=== PATIENT | female | born 1985 | race African-American/Black ===

== ENCOUNTER 2017-10-10 09:16 | Emergency (ER) | payer MEDICAID ==
[~2017-10-10] VITALS: Ht 162.6 cm; Wt 54.4 kg
[~2017-10-10 09:16] MED LIST: ZYPREXA7.5 MG ORAL
[2017-10-10 09:36] VITALS: BP 117/76
--- NOTE | 2017-10-10 09:45 | Emergency Room Report ---
History of Present Illness General Chief Complaint: Behavioral Complaint Source: Patient, EMS (TanvirCj) Present Illness HPI Patient is a 31-year-old female brought in by EMS with [employer] after increased bizarre behavior. Patient was placed on 5150 hold by [employer]. Reportedly she been noted to have a prior history of bipolar disorder and was taking Zyprexa but had been off of her medications. The patient had been noted to have decreased appetite over the past 7 days. The patient was reportedly attempting to flood her bathroom when EMS was called (Cj Ramey) Allergies: Coded Allergies: No Known Allergies (Unverified , 10/11/17) UNABLE TO ASSESS (Unverified , 11/29/15) Patient History Past Medical History: see triage record Reviewed Nursing Documentation: PMH: Agreed; PSxH: Agreed (Cj Ramey) Nursing Documentation-PMH Past Medical History: No History, Except For History Of Psychiatric Problem: Yes (Cj Ramey) Review of Systems All Other Systems: negative except mentioned in HPI (Cj Ramey) Physical Exam Vital Signs Date Time Temp Pulse Resp B/P (MAP) Pulse Ox O2 Delivery O2 Flow Rate FiO2 10/10/17 09:09 98.1 67 16 117/76 100 Room Air 98.1 Sp02 EP Interpretation: reviewed, normal General Appearance: alert/responsive, no apparent distress, GCS 15, non-toxic Head: atraumatic Eyes: PERRL, lids + conjunctiva normal ENT: hearing intact, no angioedema Neck: supple/symm/no masses, no meningismus Respiratory: effort normal, no wheezing, chest symmetrical Cardiovascular: regular rate, rhythm, no edema Cardiovascular #2: 2+ carotid (R), 2+ carotid (L), 2+ dorsalis pedis (R), 2+ dorsalis pedis (L) Gastrointestinal: non-tender, no mass, non-distended, no rebound/guarding, normal bowel sounds Musculoskeletal: gait & station normal, strength & tone normal, normal ROM, non -tender Neurologic: normal inspection, CN II-XII intact, oriented x3, sensory intact, normal speech Psychiatric: normal inspection, anxious Skin: no rash, well hydrated Lymphatic: normal inspection (Cj Ramey) Medical Decision Making Diagnostic Impression: Primary Impression: Bipolar disorder Additional Impression: Substance abuse ER Course Patient presented for psychosis. Differential diagnoses include substance abuse, psychosis, bipolar disorder, depression, malingering. Because of complexity of patient's case laboratory testing and imaging studies were ordered.Laboratory testing was notable for urine drug screen positive for methamphetamine and marijuana. Patient was noted to be medically cleared for psychiatric placement. Labs Test 10/10/17 09:45 10/10/17 10:00 Urine HCG, Qualitative Negative (NEGATIVE) Urine Opiates Screen Negative (NEGATIVE) Urine Barbiturates Screen Negative (NEGATIVE) Phencyclidine (PCP) Screen Negative (NEGATIVE) Urine Amphetamines Screen Positive (NEGATIVE) Urine Benzodiazepines Screen Negative (NEGATIVE) Urine Cocaine Screen Negative (NEGATIVE) Urine Marijuana (THC) Screen Positive (NEGATIVE) White Blood Count 7.7 K/UL (4.8-10.8) Red Blood Count 4.78 M/UL (4.20-5.40) Hemoglobin 11.8 G/DL (12.0-16.0) Hematocrit 38.1 % (37.0-47.0) Mean Corpuscular Volume 80 FL (80-99) Mean Corpuscular Hemoglobin 24.8 PG (27.0-31.0) Mean Corpuscular Hemoglobin Concent 31.1 G/DL (32.0-36.0) Red Cell Distribution Width 12.4 % (11.6-14.8) Platelet Count 332 K/UL (150-450) Mean Platelet Volume 6.3 FL (6.5-10.1) Neutrophils (%) (Auto) 60.3 % (45.0-75.0) Lymphocytes (%) (Auto) 28.1 % (20.0-45.0) Monocytes (%) (Auto) 9.3 % (1.0-10.0) Eosinophils (%) (Auto) 0.8 % (0.0-3.0) Basophils (%) (Auto) 1.6 % (0.0-2.0) Sodium Level 139 MMOL/L (136-145) Potassium Level 3.9 MMOL/L (3.5-5.1) Chloride Level 103 MMOL/L (98-107) Carbon Dioxide Level 28 MMOL/L (21-32) Anion Gap 8 mmol/L (5-15) Blood Urea Nitrogen 13 mg/dL (7-18) Creatinine 0.8 MG/DL (0.55-1.30) Estimat Glomerular Filtration Rate > 60 mL/min (>60) Glucose Level 82 MG/DL (74-106) Calcium Level 9.1 MG/DL (8.5-10.1) Total Bilirubin 0.3 MG/DL (0.2-1.0) Aspartate Amino Transf (AST/SGOT) 25 U/L (15-37) Alanine Aminotransferase (ALT/SGPT) 29 U/L (12-78) Alkaline Phosphatase 75 U/L (46-116) Troponin I 0.000 ng/mL (0.000-0.056) Total Protein 7.5 G/DL (6.4-8.2) Albumin 3.9 G/DL (3.4-5.0) Globulin 3.6 g/dL Albumin/Globulin Ratio 1.1 (1.0-2.7) Salicylates Level 2.6 ug/mL (2.8-20) Acetaminophen Level < 2 MCG/ML (10-30) Serum Alcohol < 3 mg/dL (Cj Ramey) Last Vital Signs Date Time Temp Pulse Resp B/P (MAP) Pulse Ox O2 Delivery O2 Flow Rate FiO2 10/10/17 09:09 98.1 67 16 117/76 100 Room Air 98.1 Status: improved (Cj Ramey) Disposition: HOME, SELF-CARE Condition: Stable Assessment/Plan Assessment/Plan Dr. Lopez came to see patient and ordered antipsychotics as well as initiated patient on outpatient meds with a Zyprexa Rx and will dc. (MICHELLE DRAKE M.D) Cj Ramey Oct 10, 2017 09:45 MICHELLE DRAKE M.D Oct 11, 2017 11:50
[2017-10-10 10:07] LABS: BASOPHILS % (AUTO) 1.6 % (0.0-2.0); EOSINOPHILS % (AUTO) 0.8 % (0.0-3.0); HEMATOCRIT 38.1 % (37.0-47.0); HEMOGLOBIN 11.8 G/DL (12.0-16.0); LYMPHOCYTES % (AUTO) 28.1 % (20.0-45.0); MEAN CORPUSCULAR VOLUME 80 FL (80-99); MONOCYTES % (AUTO) 9.3 % (1.0-10.0); NEUTROPHILS % (AUTO) 60.3 % (45.0-75.0); PLATELET COUNT 332 K/UL (150-450); RED BLOOD COUNT 4.78 M/UL (4.20-5.40); RED CELL DISTRIBUTION WIDTH 12.4 % (11.6-14.8); WHITE BLOOD COUNT 7.7 K/UL (4.8-10.8)
[2017-10-10 10:30] LABS: ANION GAP 8 mmol/L (5-15); BLOOD UREA NITROGEN 13 mg/dL (7-18); CALCIUM 9.1 MG/DL (8.5-10.1); CARBON DIOXIDE 28 MMOL/L (21-32); CHLORIDE 103 MMOL/L (98-107); CREATININE 0.8 MG/DL (0.55-1.30); POTASSIUM 3.9 MMOL/L (3.5-5.1); SODIUM 139 MMOL/L (136-145)
[2017-10-10 10:35] LABS: ALANINE AMINOTRANSFERASE 29 U/L (12-78); ALBUMIN 3.9 G/DL (3.4-5.0); ALBUMIN/GLOBULIN RATIO 1.1 (1.0-2.7); ALKALINE PHOSPHATASE 75 U/L (46-116); ASPARTATE AMINO TRANSFERASE 25 U/L (15-37); BILIRUBIN,TOTAL 0.3 MG/DL (0.2-1.0)
[2017-10-10 13:14] VITALS: BP 113/64
[2017-10-10 17:13] VITALS: BP 100/64
[2017-10-11 00:41] VITALS: BP 114/77
[2017-10-11 05:19] VITALS: BP 116/74
[2017-10-11 08:29] VITALS: BP 113/76
[2017-10-11 12:12] VITALS: BP 121/78
[2017-10-11] MEDS ORDERED: fluPHENAZine Decanoate 25mg Inj IM ONE (12:15)
[2017-10-11 13:21] VITALS: BP 121/78
--- NOTE | 2017-10-11 14:44 | Consultation ---
History of Present Illness General Date patient seen: Oct 11, 2017 Chief Complaint: Behavioral Complaint Present Illness HPI 31-year-old female brought in by EMS with [employer] after increased bizarre behavior on 5150. the pt was seen after she stabilized in ER. the pt was walking in traffic and was hallucinating. the pts system was positive for meth and cannabis. the pt does not endorse si/hi. no psychotic sxs. the pt stated that she ran out of meds. the pt has a psychiatrist. the pt is not at imminent dts/ dto. Allergies: Coded Allergies: No Known Allergies (Unverified , 10/11/17) UNABLE TO ASSESS (Unverified , 11/29/15) Medication History Scheduled Olanzapine (Zyprexa), 7.5 MG ORAL DAILY, (Reported) Patient History Limited by: medical condition History Provided By: Patient, Medical Record, PMD Healthcare decision maker Resuscitation status Advanced Directive on File Past Medical/Surgical History Past Medical/Surgical History: (1) Acute alcoholic intoxication Review of Systems Psychiatric: Reports: prior hx, anxiety, hallucinations Physical Exam General Appearance: no apparent distress, alert Neurologic: oriented x 3, responsive, depressed affect Last 24 Hour Vital Signs Date Time Temp Pulse Resp B/P (MAP) Pulse Ox O2 Delivery O2 Flow Rate FiO2 10/11/17 13:21 98.0 79 17 121/78 99 Room Air 10/11/17 12:12 79 17 121/78 99 Room Air 10/11/17 08:29 86 15 113/76 99 Room Air 10/11/17 05:19 98.2 90 12 116/74 98 Room Air 98.2 10/11/17 00:41 98.2 96 14 114/77 98 Room Air 98.2 10/10/17 17:13 98.7 65 16 100/64 98 Room Air 98.7 Intake and Output 10/10/17 10/11/17 19:00 07:00 Intake Total 0 ml 30 ml Balance 0 ml 30 ml Intake Oral 0 ml 30 ml # Voids 1 Height (Feet): 5 Height (Inches): 4.00 Weight (Pounds): 120 Assessment/Plan Status: stable Assessment/Plan depression schizophrenia prolexin dec 25 IM zyprexa script dc sitter dc 5150 the pt is not at imminent dts/dto Darlene Dawn M.D. Oct 11, 2017 14:44
== END 2017-10-11 13:24 | disposition home or self-care (01) ==
LOC: EDBD 09:16 → EMR 10:36 → MERGE 10:36 → EMR 10-11 13:24
DX: F31.9 Bipolar disorder, unspecified (principal); F19.10 Other psychoactive substance abuse, uncomplicated
CPT/HCPCS: 36415; 80053; 80307; 80329; 81025; 84484; 85025; 96372; 99283; J2680

== ENCOUNTER 2018-10-05 12:01 | Emergency (ER) | payer MEDICAID ==
[~2018-10-05] VITALS: Ht 162.6 cm; Wt 56.7 kg
--- NOTE | 2018-10-05 12:01 | NUR ---
ED Nurse Note: PER EMS, PT. HAS BEEN FEELING WEAK X 3 DAYS, WAS REPORTED THAT SHE HAS NOT BEEN EATING BUT DRINKING BEER
[2018-10-05 12:20] VITALS: BP 138/91
[2018-10-05 12:47] LABS: BASOPHILS % (AUTO) 2.4 % (0.0-2.0); HEMATOCRIT 35.7 % (37.0-47.0); HEMOGLOBIN 10.6 G/DL (12.0-16.0); MEAN CORPUSCULAR VOLUME 81 FL (80-99); MONOCYTES % (AUTO) 11.3 % (1.0-10.0); NEUTROPHILS % (AUTO) 41.4 % (45.0-75.0); PLATELET COUNT 320 K/UL (150-450); RED CELL DISTRIBUTION WIDTH 14.3 % (11.6-14.8); WHITE BLOOD COUNT 4.3 K/UL (4.8-10.8)
[2018-10-05 12:59] LABS: ANION GAP 13 mmol/L (5-15); BLOOD UREA NITROGEN 8 mg/dL (7-18); CALCIUM 8.8 MG/DL (8.5-10.1); CARBON DIOXIDE 24 MMOL/L (21-32); CHLORIDE 100 MMOL/L (98-107); CREATININE 0.7 MG/DL (0.55-1.30); POTASSIUM 4.2 MMOL/L (3.5-5.1); SODIUM 137 MMOL/L (136-145)
[2018-10-05 13:03] LABS: ALANINE AMINOTRANSFERASE 35 U/L (12-78); ALBUMIN 3.8 G/DL (3.4-5.0); ALBUMIN/GLOBULIN RATIO 0.9 (1.0-2.7); ALKALINE PHOSPHATASE 117 U/L (46-116); ASPARTATE AMINO TRANSFERASE 35 U/L (15-37); BILIRUBIN,TOTAL 0.2 MG/DL (0.2-1.0)
--- NOTE | 2018-10-05 13:47 | NUR ---
ED Nurse Note: patient not giving out urine specimen. Dr. Ryan diaz with it.
[2018-10-05 15:03] LABS: APPEARANCE,URINE CLEAR; BILIRUBIN, URINE NEGATIVE (NEGATIVE); COLOR,URINE PALE YELLOW; GLUCOSE, URINE (UA) NEGATIVE (NEGATIVE); KETONES,URINE NEGATIVE (NEGATIVE); LEUKOCYTE ESTERASE ,URINE 1+ (NEGATIVE); NITRITE,URINE NEGATIVE (NEGATIVE); PH,URINE 5 (4.5-8.0); PROTEIN,URINE NEGATIVE (NEGATIVE); UROBILINOGEN,URINE NORMAL MG/DL (0.0-1.0)
[2018-10-05 15:27] VITALS: BP 156/103
--- NOTE | 2018-10-05 15:32 | Emergency Room Report ---
History of Present Illness General Chief Complaint: Medical Clearance Source: Patient, EMS, [employer] Enforcement Present Illness HPI Patient here for medical clearance. Brought by EMS and [employer]. She complains of not wanting to eat. She was drinking a beer when she was arrested. Apparently had been admitted to [facility] and had a child. The child is cared for by her mother at this time. Patient in custody for outstanding warrants. Takes Zyprexa. Not taking for 1 month. She does not answer many questions. Seen her for alcohol intoxication and schizophrenia last November. Allergies: Coded Allergies: No Known Allergies (Unverified , 10/11/17) UNABLE TO ASSESS (Unverified , 11/29/15) Patient History Limited by: other - patient not answering Past Medical History: see triage record Social History: Reports: smoking, alcohol use, drug use Social History Narrative has been living on streets Reviewed Nursing Documentation: PMH: Agreed; PSxH: Agreed Nursing Documentation-PMH History Of Psychiatric Problem: Yes - BIPOLAR Review of Systems All Other Systems: limited Physical Exam Vital Signs Date Time Temp Pulse Resp B/P (MAP) Pulse Ox O2 Delivery O2 Flow Rate FiO2 10/05/18 11:43 98.6 81 15 163/124 98 Room Air Sp02 EP Interpretation: reviewed, normal General Appearance: well appearing, no apparent distress, GCS 15 Head: normocephalic Eyes: bilateral eye normal inspection, bilateral eye PERRL ENT: moist mucus membranes Neck: supple Respiratory: lungs clear, normal breath sounds Cardiovascular #1: regular rate, rhythm Cardiovascular #2: 2+ radial (R) Gastrointestinal: normal inspection, normal bowel sounds, non tender, no mass, non-distended Musculoskeletal: back normal, gait/station normal, normal range of motion Neurologic: alert, grossly normal, oriented - X2 Psychiatric: depressed affect Skin: normal inspection, warm/dry Medical Decision Making Diagnostic Impression: Primary Impression: Substance abuse Additional Impression: Bipolar disorder Qualified Codes: F31.9 - Bipolar disorder, unspecified ER Course Patient brought for medial clearance for not eating. DDx: exacerbation of schizophrenia, bipolar disorder, dehydration, electrolyte abnormalities, drug ingestion amongst others. Patient evaluated with labs. Treated with IV hydration. Chest clear, imaging not indicated. Not orthostatic. Labs significant for normal CBC (mild anemia). Normal CMP. Quant HCG 2. + amphetamines and THC. Attempting to get information from [facility]. [facility] arm bands with tx 09/09 and "baby girl." She complains of chest pain and states she has been doing meth. Also complaining of not being connected in her head. EKG ordered = normal. Tylenol and Zyprexa given. (She states she takes 15 mg/d.) No SI or HI but no on Zyprexa for 1 month. Requests. Laboratory Tests Test 10/05/18 12:30 10/05/18 14:43 White Blood Count 4.3 K/UL (4.8-10.8) L Red Blood Count 4.40 M/UL (4.20-5.40) Hemoglobin 10.6 G/DL (12.0-16.0) L Hematocrit 35.7 % (37.0-47.0) L Mean Corpuscular Volume 81 FL (80-99) Mean Corpuscular Hemoglobin 24.0 PG (27.0-31.0) L Mean Corpuscular Hemoglobin Concent 29.6 G/DL (32.0-36.0) L Red Cell Distribution Width 14.3 % (11.6-14.8) Platelet Count 320 K/UL (150-450) Mean Platelet Volume 6.6 FL (6.5-10.1) Neutrophils (%) (Auto) 41.4 % (45.0-75.0) L Lymphocytes (%) (Auto) 43.0 % (20.0-45.0) Monocytes (%) (Auto) 11.3 % (1.0-10.0) H Eosinophils (%) (Auto) 2.0 % (0.0-3.0) Basophils (%) (Auto) 2.4 % (0.0-2.0) H Sodium Level 137 MMOL/L (136-145) Potassium Level 4.2 MMOL/L (3.5-5.1) Chloride Level 100 MMOL/L (98-107) Carbon Dioxide Level 24 MMOL/L (21-32) Anion Gap 13 mmol/L (5-15) Blood Urea Nitrogen 8 mg/dL (7-18) Creatinine 0.7 MG/DL (0.55-1.30) Estimate Glomerular Filtration Rate > 60 mL/min (>60) Glucose Level 76 MG/DL (74-106) Calcium Level 8.8 MG/DL (8.5-10.1) Total Bilirubin 0.2 MG/DL (0.2-1.0) Aspartate Amino Transferase (AST) 35 U/L (15-37) Alanine Aminotransferase (ALT) 35 U/L (12-78) Alkaline Phosphatase 117 U/L (46-116) H Troponin I 0.000 ng/mL (0.000-0.056) Total Protein 7.8 G/DL (6.4-8.2) Albumin 3.8 G/DL (3.4-5.0) Globulin 4.0 g/dL Albumin/Globulin Ratio 0.9 (1.0-2.7) L Lipase 109 U/L (73-393) Human Chorionic Gonadotropin, Quant 2 mIU/mL (1-6) Urine Color Pale yellow Urine Appearance Clear Urine pH 5 (4.5-8.0) Urine Specific [place] 1.010 (1.005-1.035) Urine Protein Negative (NEGATIVE) Urine Glucose (UA) Negative (NEGATIVE) Urine Ketones Negative (NEGATIVE) Urine Blood Negative (NEGATIVE) Urine Nitrite Negative (NEGATIVE) Urine Bilirubin Negative (NEGATIVE) Urine Urobilinogen Normal MG/DL (0.0-1.0) Urine Leukocyte Esterase 1+ (NEGATIVE) H Urine RBC 0-2 /HPF (0 - 2) Urine WBC 0-2 /HPF (0 - 2) Urine Squamous Epithelial Cells Occasional /LPF Urine Bacteria Occasional /HPF (NONE) Urine Opiates Screen Negative (NEGATIVE) Urine Barbiturates Screen Negative (NEGATIVE) Phencyclidine (PCP) Screen Negative (NEGATIVE) Urine Amphetamines Screen Positive (NEGATIVE) H Urine Benzodiazepines Screen Negative (NEGATIVE) Urine Cocaine Screen Negative (NEGATIVE) Urine Marijuana (THC) Screen Positive (NEGATIVE) H EKG Diagnostic Results Rate: normal Rhythm: NSR ST Segments: no acute changes Rhythm Strip Diag. Results EP Interpretation: yes Rhythm: NSR, no PVC's, no ectopy Last Vital Signs Date Time Temp Pulse Resp B/P (MAP) Pulse Ox O2 Delivery O2 Flow Rate FiO2 10/05/18 16:26 98.3 83 17 156/103 100 Room Air Status: improved Disposition: D/C TO LAW ENFORCEMENT IN [facility]UST Condition: Stable Scripts Acetaminophen (Tylenol) 325 Mg Tablet 650 MG ORAL Q6H PRN for Prn Pain/Headache/Temp > 101, #20 TAB 0 Refills Prov: Dominic Davis MD 10/05/18 Olanzapine (OLANZAPINE) 7.5 Mg Tablet 7.5 MG ORAL DAILY, #20 TAB 0 Refills Prov: Dominic Davis MD 10/05/18 Referrals: [facility],REFERRING (PCP) Dominic Davis MD Oct 05, 2018 15:32
[2018-10-05] MEDS ORDERED: OLANZAPINE7.5 MG ORAL (16:07)
[2018-10-05] MEDS ORDERED: TYLENOL325 MG ORAL (16:07)
[2018-10-05 16:26] VITALS: BP 156/103
--- NOTE | 2018-10-05 16:27 | NUR ---
Note deniz in EDM - 10/05/18 at 1658 by AREN ER DISCHARGE NOTE: Patient is cleared to be discharged per ERMD, pt is aox4, on room air, with stable vital signs. pt was given dc and prescription instructions, pt was able to verbalize understanding, pt id band and iv site removed without complications. pt is able to ambulate with steady gait. pt took all belongings.
--- NOTE | 2018-10-05 16:27 | NUR ---
ER DISCHARGE NOTE: Patient is cleared to be discharged per ERMD, pt is aox4, on room air, with stable vital signs. pt was given dc and prescription instructions, pt was able to verbalize understanding, pt id band removed without complications. pt is able to ambulate with steady gait. pt took all belongings.
--- NOTE | 2018-10-05 16:28 | NUR ---
ED Nurse Note: patient is being discharged with the police officers as she is medically cleared.
--- NOTE | 2018-10-05 16:50 | NUR ---
ED Nurse Note: patient was discharged with the IV site still remaining in the patient. RN notified charge nurse, Vandana, who spoke with [employer] dispatcher. patient is in [facility] and there is a nurse in [facility], per dispatcher, nurse in [facility] will take care of the IV.
--- NOTE | 2018-10-07 19:14 | Cardiology Report ---
APPROVED REPORT EKG Measurement Heart [id number] Normal sinus rhythm Normal ECG
== END 2018-10-05 16:58 ==
LOC: EDBD 12:01 → EMR 12:41
DX: F10.10 Alcohol abuse, uncomplicated (principal); F31.9 Bipolar disorder, unspecified; F15.10 Other stimulant abuse, uncomplicated
CPT/HCPCS: 36415; 80053; 80307; 81003; 83690; 84484; 84702; 85025; 86850; 86900; 86901; 93005; 96360; 99284